=== PATIENT | female | born 1965 | race Caucasian/White ===

== ENCOUNTER 2017-11-21 23:26 | Emergency (ER) | payer SELFPAY ==
[2017-11-21 23:42] VITALS: RESP 20
[2017-11-21] MEDS ORDERED: CEFOXITIN 1 GM PDS 1 GM in SODIUM CHLORIDE 0.9% 100 ML 100 ML IV SCH (23:45)
[2017-11-21] MEDS ORDERED: CEFTRIAXONE 1 GM PDS IM ONE (23:56)
[2017-11-22] MEDS ORDERED: CEFTRIAXONE 1 GM PDS IM ONE (00:07)
[2017-11-22] MEDS ORDERED: CEFTRIAXONE 1 GM PDS ONE (00:12)
[2017-11-22] MEDS ORDERED: LIDOCAINE HCL 1% MPF 30 SOL ONE (00:13)
[2017-11-22] MEDS ORDERED: KETOROLAC TROMETHAMINE 30 MG/ML SOL IM ONE (00:14)
[2017-11-22] MEDS ORDERED: DOXYCYCLINE 100 MG TAB PO SCH (00:15)
[2017-11-22] MEDS ORDERED: DOXYCYCLINE 100 MG TAB ONE (00:22)
[2017-11-22] MEDS ORDERED: DOXYCYCLINE 100 MG TAB PO ONE (00:35)
[2017-11-22] MEDS ORDERED: KETOROLAC TROMETHAMINE 30 MG/ML SOL ONE (00:39)
[2017-11-22 03:46] VITALS: BP 136/82; PULSE 84; TEMP 97.2; O2SAT 98
== END 2017-11-22 03:33 | disposition home or self-care (01) | DRG 759 ==
LOC: ED 23:26
DX: N73.0 Acute parametritis and pelvic cellulitis (principal); N76.0 Acute vaginitis; N89.8 Other specified noninflammatory disorders of vagina
CPT/HCPCS: 87210; 96372; 99283; 99285; J0696; J1885; A6402; A9270-GY; J2001